=== PATIENT | male | born 1990 | race Caucasian/White ===

== ENCOUNTER 2016-07-05 15:42 | Emergency (ER) | payer OTHER ==
[2016-07-05 16:01] VITALS: BP 119/73
--- NOTE | 2016-07-05 16:58 | UC ---
Ear Complaint HPI - HPI Summary HPI Summary: LEFT EAR PAIN SINCE YESTERDAY. HAS POSITIVE INFLUENZA, DIAGNOSED TODAY. TODAY HAS HAS WORSENIGN FATIGUE COUGH AND ACHES. - History of Current Complaint Chief Complaint: UCRespiratory Stated Complaint: COUGH, EAR PAIN Time Seen by Provider: 07/05/16 16:30 Hx Obtained From: Patient Onset/Duration: Sudden Onset, Lasting Days, Still Present Severity Initially: Moderate Severity Currently: Moderate Associated Signs/Symptoms: Positive: URI Symptoms - Allergies/Home Medications Allergies/Adverse Reactions: Allergies Allergy/AdvReac Type Severity Reaction Status Date / Time Cefaclor [From Ceclor] Allergy Severe Hives Verified 01/08/15 12:43 Cephalexin [From Keflex] Allergy Severe Hives Verified 01/08/15 12:43 Home Medications: Home Medications Naltrexone [Vivitrol] 07/05/16 [History] PMH/Surg Hx/FS Hx/Imm Hx Previously Healthy: Yes Endocrine History Of: Denies: Diabetes, Thyroid Disease Cardiovascular History Of: Denies: Cardiac Disorders, Hypertension Respiratory History Of: Denies: COPD, Asthma GI/ History Of: Reports: Renal Disease - HX KIDNEY CYSTS Denies: Ulcer - Surgical History Surgical History: Yes Surgery Procedure, Year, and Place: tonsillectomy and adenoidectomy; ear tubes - Family History Known Family History: Positive: None, Other - Alcohol abuse, bipolar disorder Negative: Respiratory Disease - Social History Occupation: Employed Full-time Lives: With Family Alcohol Use: None Substance Use Type: Heroin, Marijuana Smoking Status (MU): Light Every Day Tobacco Smoker Amount Used/How Often: 5 cigs daily Household Exposure Type: Cigarettes Review of Systems Constitutional: Fatigue Skin: Negative Eyes: Negative ENT: Ear Ache Respiratory: Cough Cardiovascular: Negative Gastrointestinal: Negative Genitourinary: Negative Motor: Negative Neurovascular: Negative Musculoskeletal: Negative Neurological: Negative Psychological: Negative All Other Systems Reviewed And Are Negative: Yes Physical Exam Triage Information Reviewed: Yes Appearance: Well-Appearing, No Pain Distress, Thin Vital Signs: Initial Vital Signs Temp 98.3 F 07/05/16 15:54 Pulse 75 07/05/16 15:54 Resp 16 07/05/16 15:54 BP 119/73 07/05/16 15:54 Pulse Ox 99 07/05/16 15:54 Vital Signs Reviewed: Yes Eye Exam: Normal ENT: Positive: Hearing grossly normal, Pharynx normal, Nasal congestion, TM dull , Other: - LEFT EAR EAC ERRETHEMA EDEMA Dental Exam: Normal Neck exam: Normal Neck: Positive: Supple, Nontender, No Lymphadenopathy Respiratory Exam: Other - COUGH Respiratory: Positive: Chest non-tender, Lungs clear, Normal breath sounds, No respiratory distress, No accessory muscle use Cardiovascular Exam: Normal Cardiovascular: Positive: RRR, No Murmur, Pulses Normal, Brisk Capillary Refill Abdominal Exam: Normal Abdomen Description: Positive: Nontender, No Organomegaly Musculoskeletal Exam: Normal Neurological Exam: Normal Psychological Exam: Normal Skin Exam: Normal Ear Complaint Course/Dx - Differential Dx/Diagnosis Differential Diagnosis/HQI/PQRI: Otitis Externa, Otitis Media, Perforated TM, URI Provider Diagnoses: INFLUENZA. LEFT OTITIS EXTERNA Discharge - Discharge Plan Condition: Stable Disposition: HOME Prescriptions: Neomyc/Polym/HC 1% OTIC SUSP* [Cortisporin Otic Susp 1%*] 4 drop LEFT EAR QID # 1 btl Oseltamivir CAP* [Tamiflu CAP*] 75 mg PO BID #10 cap Patient Education Materials: Otitis Externa (ED), Influenza (ED) Forms: *Work Release Referrals: Sharath Cartwright MD [Primary Care Provider] -
== END 2016-07-05 17:00 | disposition home or self-care (01) ==
LOC: UCEAST 15:42
DX: J11.1 Influenza due to unidentified influenza virus with other respiratory manifestations (principal); H60.92 Unspecified otitis externa, left ear; Z88.1 Allergy status to other antibiotic agents; F17.210 Nicotine dependence, cigarettes, uncomplicated
CPT/HCPCS: 99212; G0463

== ENCOUNTER 2017-06-06 15:27 | Emergency (ER) | payer SELFPAY ==
[2017-06-06 16:40] VITALS: BP 131/69
--- NOTE | 2017-06-06 20:20 | RAD ---
INDICATION: Right elbow pain after throwing snowballs COMPARISON: None TECHNIQUE: AP and lateral views were obtained. FINDINGS: The bony structures, joint spaces, and soft tissues are normal for age. IMPRESSION: NEGATIVE EXAMINATION.
--- NOTE | 2017-06-06 20:21 | RAD ---
INDICATION: Right forearm pain after throwing snowballs COMPARISON: None TECHNIQUE: AP and lateral views were obtained. FINDINGS: The bony structures, joint spaces, and soft tissues are normal for age. IMPRESSION: NEGATIVE EXAMINATION.
--- NOTE | 2017-06-06 21:11 | UC ---
Elbow Pain - HPI Summary HPI Summary: 26 yo WM c/o right elbow x 2 days after throwing snow for an hour, denies injury or trauma - History of Current Complaint Chief Complaint: UCUpperExtremity Stated Complaint: SHOULDER INJURY Time Seen by Provider: 06/06/17 19:43 Hx Obtained From: Patient Onset/Duration: Hours Severity Currently: Moderate Pain Intensity: 8 - Allergies/Home Medications Allergies/Adverse Reactions: Allergies Allergy/AdvReac Type Severity Reaction Status Date / Time MS Cefaclor [From Ceclor] Allergy Severe Hives Verified 06/06/17 16:40 MS Cephalexin [From Keflex] Allergy Severe Hives Verified 06/06/17 16:40 Home Medications: Home Medications Citalopram Hydrobromide [Citalopram HBr] 20 mg PO DAILY 06/06/17 [History Confirmed 06/06/17] Gabapentin CAP(*) [Neurontin 300 CAP(*)] 300 mg PO BEDTIME 06/06/17 [History Confirmed 06/06/17] Nicotine PATCH 21 MG/24 HR* 21 mg TRANSDERM DAILY 06/06/17 [History Confirmed ] PMH/Surg Hx/FS Hx/Imm Hx - Additional Past Medical History Additional PMH: none - Surgical History Surgical History: Yes Surgery Procedure, Year, and Place: tonsillectomy and adenoidectomy; ear tubes - Family History Known Family History: Positive: None, Other - Alcohol abuse, bipolar disorder Negative: Respiratory Disease - Social History Alcohol Use: None Substance Use Type: Heroin, Marijuana Smoking Status (MU): Light Every Day Tobacco Smoker Amount Used/How Often: 5 cigs daily Household Exposure Type: Cigarettes Review of Systems Constitutional: Negative Skin: Negative Eyes: Negative ENT: Negative Respiratory: Negative Cardiovascular: Negative Gastrointestinal: Negative Genitourinary: Negative Motor: Negative Neurovascular: Negative Musculoskeletal: Decreased ROM, Other: - left elbow pain radiating up right biceps and triceps Neurological: Negative Psychological: Negative All Other Systems Reviewed And Are Negative: Yes Physical Exam Triage Information Reviewed: Yes Appearance: Well-Appearing Vital Signs: Initial Vital Signs Temp 37.6 C 06/06/17 16:35 Pulse 82 06/06/17 16:35 Resp 16 06/06/17 16:35 BP 131/69 06/06/17 16:35 Pulse Ox 98 06/06/17 16:35 Eye Exam: Normal ENT Exam: Normal Dental Exam: Normal Neck exam: Normal Neck: Positive: 1 Respiratory Exam: Normal Cardiovascular Exam: Normal Abdominal Exam: Normal Musculoskeletal Exam: Normal Musculoskeletal: Positive: ROM Limited @ - right elbow due to pain, Other: - moderate TTP along lower half of right biceps and triceps NVI no numbness and tingling NO bony tenderness Neurological Exam: Normal Psychological Exam: Normal Skin Exam: Normal Elbow Pain Course/Dx - Course Course Of Treatment: XR of right elbow and forearm neg for fx, likely a strain from sudden demand on musculature from repetitive motion, RICE, f/u with ortho if pain persists beyond 2-3 weeks and maybe an MRI - Differential Dx/Diagnosis Provider Diagnoses: Right arm strain. Elbow injury Discharge - Discharge Plan Condition: Stable Disposition: HOME Patient Education Materials: Elbow Sprain (ED) Referrals: Sharath Cartwright MD [Primary Care Provider] - Additional Instructions: as tolerated
== END 2017-06-06 21:05 | disposition home or self-care (01) ==
LOC: UCEAST 15:27
DX: S59.901A Unspecified injury of right elbow, initial encounter (principal); X50.0XXA Overexertion from strenuous movement or load, initial encounter; X50.3XXA Overexertion from repetitive movements, initial encounter; Y93.29 Activity, other involving ice and snow; Y92.9 Unspecified place or not applicable; F17.210 Nicotine dependence, cigarettes, uncomplicated; S53.401A Unspecified sprain of right elbow, initial encounter
CPT/HCPCS: 99212; G0463

== ENCOUNTER 2017-06-29 07:24 | Emergency (ER) | payer OTHER ==
[2017-06-29] MEDS ORDERED: Tetan/Diph/Pertus SYR(Tdap)* 0.5 ML SYR(BOOSTRIX) use SYR IM ONE (07:32)
[2017-06-29] MEDS ORDERED: Morphine INJ* 4 MG/ML 1 ML CARPUJECT IV ONE (07:33)
[2017-06-29] MEDS ORDERED: NS 0.9% 1000 ML* 1,000 ML IV ONE (07:38)
[2017-06-29] MEDS ORDERED: Morphine INJ* 2 MG/ML 1 ML SYRINGE (TWO MG - NEW SYRINGE VERSION) ONE (07:43)
[2017-06-29] MEDS ORDERED: Morphine VIAL* 10 MG/ML 1 ML VIAL ONE (07:46)
[2017-06-29] MEDS ORDERED: Morphine VIAL* 10 MG/ML 1 ML VIAL IV ONE (07:51)
[2017-06-29] MEDS: Morphine VIAL* 10 MG/ML 1 ML VIAL IV ONE ×2 (08:24→09:54)
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
[2017-06-29 11:09] VITALS: BP 119/78
== END 2017-06-29 09:55 | disposition short-term general hospital (02) ==
LOC: UCEAST 07:24
DX: T23.242A Burn of second degree of multiple left fingers (nail), including thumb, initial encounter (principal); T23.211A Burn of second degree of right thumb (nail), initial encounter; X02.0XXA Exposure to flames in controlled fire in building or structure, initial encounter; Y93.G3 Activity, cooking and baking; Y92.9 Unspecified place or not applicable; Z23 Encounter for immunization; R03.0 Elevated blood-pressure reading, without diagnosis of hypertension; Z86.19 Personal history of other infectious and parasitic diseases; Z88.1 Allergy status to other antibiotic agents; F17.210 Nicotine dependence, cigarettes, uncomplicated
CPT/HCPCS: 90715; 96361; 96374; 96376; 99203; G0463; J2270

== ENCOUNTER 2017-10-16 16:23 | Emergency (ER) | payer MEDICAID, OTHER ==
[2017-10-16 16:33] VITALS: BP 127/86
[2017-10-16] MEDS ORDERED: diPHENhydraMINE PO* 25 MG PO ONE (16:44)
--- NOTE | 2017-10-18 11:13 | ED ---
Krista Mcrae Tenzin, scribed for Francis Dasilva MD on 10/16/17 at 1650 . Allergic Reaction/Systemic - HPI Summary HPI Summary: Pt is a 26 years old male presenting to the ED complaining of allergic reaction after a bee stung this afternoon. Pt notes that his hands were red, swollen and tight like "latex glove on his hand". Pt reports that he went to wash his hands with cold water to help the swellings and noticed that his face was swollen as well. Pt denies SOB and tightness in his throat. No aggravating or alleviating factors were noted. Pt also reports that he took a shot of Meth this morning on his arm. He reports that he is trying to get in a rehab program. He reports he is off the Suboxone treatment. He denies SI. - History of Current Complaint Chief Complaint: EDGeneral Time Seen by Provider: 10/16/17 16:26 Hx Obtained From: Patient Onset/Duration: Started hours ago - this afternoon. Pain Intensity: 0 Character: Swelling - hands and face. Aggravating Factor(s): Nothing Alleviating Factor(s): Nothing Associated Signs And Symptoms: Negative: Difficulty Breathing, Throat Tightening - Allergies/Home Medications Allergies/Adverse Reactions: Allergies Allergy/AdvReac Type Severity Reaction Status Date / Time cefaclor Allergy Hives Verified 06/29/17 08:08 cephalexin Allergy Hives Verified 06/29/17 08:08 PMH/Surg Hx/FS Hx/Imm Hx Endocrine/Hematology History: Denies: Hx Diabetes, Hx Thyroid Disease Cardiovascular History: Denies: Hx Hypertension Respiratory History: Denies: Hx Asthma, Hx Chronic Obstructive Pulmonary Disease (COPD) GI History: Denies: Hx Ulcer History: Reports: Hx Renal Disease - HX KIDNEY CYSTS - Surgical History Surgery Procedure, Year, and Place: tonsillectomy and adenoidectomy; ear tubes Infectious Disease History: No Infectious Disease History: Reports: Hx Hepatitis - hep c Denies: Hx Clostridium Difficile, Hx Human Immunodeficiency Virus (HIV), Hx of Known/Suspected MRSA, Hx Shingles, Hx Tuberculosis, Hx Known/Suspected VRE, Hx Known/Suspected VRSA, History Other Infectious Disease, Traveled Outside the [place] in Last 30 Days - Family History Known Family History: Positive: None, Other - Alcohol abuse, bipolar disorder Negative: Respiratory Disease - Social History Alcohol Use: Occasionally Hx Substance Use: Yes Substance Use Type: Reports: Heroin, Marijuana, Other Substance Use Comment - Amount & Last Used: Meth Hx Tobacco Use: Yes Smoking Status (MU): Light Every Day Tobacco Smoker Type: Cigarettes Amount Used/How Often: 5 cigs daily Review of Systems Positive: Other - NEGATIVE: throat tightening. Negative: Shortness Of Breath Positive: Other - NEGATIVE: SI All Other Systems Reviewed And Are Negative: Yes Physical Exam - Summary Physical Exam Summary: Constitutional: Well-developed, Well-nourished, Alert. (-) Distressed Skin: Warm, Dry HENT: Normocephalic; Atraumatic Eyes: Conjunctiva normal Neck: Musculoskeletal ROM normal neck. (-) JVD, (-) Stridor, (-) Tracheal deviation Cardio: Rhythm regular, rate normal, Heart sounds normal; Intact distal pulses; The pedal pulses are 2+ and symmetric. Radial pulses are 2+ and symmetric. (-) Murmur Pulmonary/Chest wall: Effort normal. (-) Respiratory distress, (-) Wheezes, (-) Rales Abd: Soft, (-) Tenderness, (-) Distension, (-) Guarding, (-) Rebound Musculoskeletal: (-) Edema Lymph: (-) Cervical adenopathy Neuro: Alert, Oriented x3 Psych: Mood and affect Normal Triage Information Reviewed: Yes Vital Signs On Initial Exam: Initial Vitals Temp Pulse Resp BP Pulse Ox 98 F 81 16 127/86 99 10/16/17 16:30 10/16/17 16:30 10/16/17 16:30 10/16/17 16:30 10/16/17 16:30 Vital Signs Reviewed: Yes Diagnostics - Vital Signs Vital Signs Temp Pulse Resp BP Pulse Ox 10/16/17 16:30 98 F 81 16 127/86 99 - Laboratory Lab Statement: Any lab studies that have been ordered have been reviewed, and results considered in the medical decision making process. Allergic Reaction Course/Dx - Course Course Of Treatment: Pt is a 26 years old male presenting to the ED complaining of allergic reaction after a bee stung this afternoon. Pt reported that he took a shot of meth today. Pt is advised to seek help for addiction. Pt is prescribed with Benadryl and discharged. There were no signs or symptoms of anaphylaxis. - Diagnoses Provider Diagnoses: Bee sting reaction, Localized rash Discharge - Sign-Out/Discharge Documenting (check all that apply): Discharge/Admit/Transfer - Discharge - Discharge Plan Condition: Stable Disposition: HOME Prescriptions: diPHENhydraMINE PO* [Benadryl PO 50 MG CAP*] 50 mg PO Q6H PRN #20 cap PRN Reason: Itching Patient Education Materials: Insect Bite or Sting (ED) Referrals: Sharath Cartwright MD [Primary Care Provider] - 3 Days Additional Instructions: Follow up with your primary care physician in three days. Return to the emergency department for any new or worsening symptoms. - Billing Disposition and Condition Condition: STABLE Disposition: Home The documentation as recorded by the Krista dorantes Tenzin accurately reflects the service I personally performed and the decisions made by , Francis Dasilva MD.
== END 2017-10-16 17:08 | disposition home or self-care (01) ==
LOC: ED 16:23
DX: T63.441A Toxic effect of venom of bees, accidental (unintentional), initial encounter (principal); Y92.9 Unspecified place or not applicable; R21 Rash and other nonspecific skin eruption
CPT/HCPCS: 99282

== ENCOUNTER 2018-03-19 19:40 | Emergency (ER) | payer MEDICAID ==
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
[2018-03-19] MEDS ORDERED: Ondansetron ODT TAB* 4 MG ONE (20:39)
[2018-03-19] MEDS ORDERED: Ondansetron ODT TAB* 4 MG SL ONE (20:40)
[2018-03-19 21:05] VITALS: BP 142/91
== END 2018-03-19 21:03 | disposition home or self-care (01) ==
LOC: ED 19:40
DX: T40.1X1A Poisoning by heroin, accidental (unintentional), initial encounter (principal); Y92.512 Supermarket, store or market as the place of occurrence of the external cause; Z88.1 Allergy status to other antibiotic agents; F17.210 Nicotine dependence, cigarettes, uncomplicated
CPT/HCPCS: 99283; A9270-GY

== ENCOUNTER 2018-06-03 01:25 | Emergency (ER) | payer MEDICAID, OTHER ==
--- NOTE | 2018-06-03 02:10 | ED ---
Substance Abuse/Use - HPI Summary HPI Summary: Patient is a 27 y/o M presenting to ED via ambulance with law enforcement after injecting himself with heroin and meth. Officer Maryana is present in ED, states that patient had barricaded himself in a room and then proceeded to carry out drug injection. He notes that he arrived after the fact and had been told patient's story. Injection occurred about an hour ago. Officer is unsure if patient experienced LOC. It is reported that the patient began to have complaints of chest pain while in the ambulance, patient was given nitro x2. Chest pain has since resolved. In room, patient notes that he uses fairly frequently, injects at arms. He states that he used only once today. He is alert and oriented x3. Patient was ambulated around ED with a steady gait. In room, pulse 95, o2 99, BP 123/63. On triage, pain is denied, nothing is noted to aggravate/alleviate Sx. Home medications and allergies are reviewed. - History Of Current Complaint Chief Complaint: EDSubstanceAbuse Stated Complaint: CHEST PAIN Time Seen by Provider: 06/03/18 01:50 Hx Obtained From: Patient Onset/Duration of Drug/ETOH Abuse: Hours - around an hour ago Ingestion History: Type/Name Of Drug - heroin, meth Overdose Characteristics: IV Timing Of Abuse: Daily - "fairly regularly" Severity Currently: None - pain denied Aggravating Factor(s): Nothing Alleviating Factor(s): Nothing Associated Signs And Symptoms: Chest Pain - since resolved - Allergies/Home Medications Allergies/Adverse Reactions: Allergies Allergy/AdvReac Type Severity Reaction Status Date / Time cefaclor Allergy Hives Verified 06/29/17 08:08 cephalexin Allergy Hives Verified 06/29/17 08:08 PMH/Surg Hx/FS Hx/Imm Hx Endocrine/Hematology History: Denies: Hx Diabetes, Hx Thyroid Disease Cardiovascular History: Denies: Hx Hypertension Respiratory History: Denies: Hx Asthma, Hx Chronic Obstructive Pulmonary Disease (COPD) GI History: Denies: Hx Ulcer History: Reports: Hx Renal Disease - HX KIDNEY CYSTS - Surgical History Surgery Procedure, Year, and Place: tonsillectomy and adenoidectomy; ear tubes Infectious Disease History: Unable to Obtain/Confirm Infectious Disease History: Reports: Hx Hepatitis - hep c Denies: Hx Clostridium Difficile, Hx Human Immunodeficiency Virus (HIV), Hx of Known/Suspected MRSA, Hx Shingles, Hx Tuberculosis, Hx Known/Suspected VRE, Hx Known/Suspected VRSA, History Other Infectious Disease, Traveled Outside the [place] in Last 30 Days - Family History Known Family History: Positive: Other - Alcohol abuse, bipolar disorder Negative: Respiratory Disease - Social History Alcohol Use: Occasionally Hx Substance Use: Yes Substance Use Type: Reports: Heroin, Marijuana, Other Substance Use Comment - Amount & Last Used: Meth Hx Tobacco Use: Yes Smoking Status (MU): Light Every Day Tobacco Smoker Type: Cigarettes Amount Used/How Often: 5 cigs daily Review of Systems Constitutional: Other - POSITIVE - HEROIN AND METH USAGE Positive: Chest Pain - SINCE RESOLVED All Other Systems Reviewed And Are Negative: Yes Physical Exam - Summary Physical Exam Summary: VITAL SIGNS: Reviewed. GENERAL: Patient is a well-developed and nourished male who is lying comfortable in the stretcher. Patient is not in any acute respiratory distress. HEAD AND FACE: No signs of trauma. No ecchymosis, hematomas or skull depressions. No sinus tenderness. EYES: PERRLA, EOMI x 2, No injected conjunctiva, no nystagmus. EARS: Hearing grossly intact. Ear canals and tympanic membranes are within normal limits. MOUTH: Oropharynx within normal limits. NECK: Supple, trachea is midline, no adenopathy, no JVD, no carotid bruit, no c- spine tenderness, neck with full ROM. CHEST: Symmetric, no tenderness at palpation LUNGS: Clear to auscultation bilaterally. No wheezing or crackles. CVS: Regular rate and rhythm, S1 and S2 present, no murmurs or gallops appreciated. ABDOMEN: Soft, non-tender. No signs of distention. No rebound no guarding, and no masses palpated. Bowel sounds are normal. EXTREMITIES: FROM in all major joints, no edema, no cyanosis or clubbing. NEURO: Alert and oriented x 3. No acute neurological deficits. Speech is normal and follows commands. SKIN: Dry and warm Triage Information Reviewed: Yes Vital Signs On Initial Exam: Initial Vitals BP 120/60 06/03/18 01:31 Vital Signs Reviewed: Yes Diagnostics - Vital Signs Vital Signs Temp Pulse Resp BP Pulse Ox 06/03/18 01:44 80 119/64 98 06/03/18 01:36 97.8 F 80 14 120/60 98 06/03/18 01:33 162 100 06/03/18 01:31 120/60 - Laboratory Lab Statement: Any lab studies that have been ordered have been reviewed, and results considered in the medical decision making process. Course/Dx - Course Course Of Treatment: Patient is a 27 y/o M presenting to ED via ambulance with law enforcement after injecting himself with heroin and meth. Officer Maryana is present in ED, states that patient had barricaded himself in a room and then proceeded to carry out drug injection. He notes that he arrived after the fact and had been told patient's story. Injection occurred about an hour ago. Officer is unsure if patient experienced LOC. It is reported that the patient began to have complaints of chest pain while in the ambulance, patient was given nitro x2. Chest pain has since resolved. In room, patient notes that he uses fairly frequently, injects at arms. He states that he used only once today. He is alert and oriented x3. Patient was ambulated around ED with a steady gait. In room, pulse 95, o2 99, BP 123/63. As the patient is capable of ambulating around the ED with steady gait, he will be discharged to law enforcement. - Diagnoses Provider Diagnoses: Substance abuse Discharge - Sign-Out/Discharge Documenting (check all that apply): Patient Departure - discharge Patient Received Moderate/Deep Sedation with Procedure: No - NO PROCEDURES DONE - Discharge Plan Condition: Stable Disposition: LAW ENFORCEMENT/COURT Patient Education Materials: Polysubstance Abuse (ED) Referrals: Sharath Cartwright MD [Primary Care Provider] - 2 Days Additional Instructions: RETURN TO EMERGENCY DEPARTMENT FOR ANY NEW OR WORSENING SYMPTOMS. FOLLOW UP WITH PRIMARY CARE PHYSICIAN IN 1-2 DAYS. - Attestation Statements Document Initiated by Scribe: Yes Documenting Scribe: SAURAV SPENCE Provider For Whom Scribe is Documenting (Include Credential): EJ LOPEZ MD Scribe Attestation: SAURAV Mcrae , scribed for EJ LOPEZ MD on 06/03/18 at 0504. Status of Scribe Document: Ready
[2018-06-03 02:19] VITALS: BP 123/63
== END 2018-06-03 02:23 ==
LOC: ED 01:25
DX: F19.10 Other psychoactive substance abuse, uncomplicated (principal); R07.9 Chest pain, unspecified; F17.210 Nicotine dependence, cigarettes, uncomplicated
CPT/HCPCS: 99282

== ENCOUNTER 2018-06-14 08:03 | Emergency (ER) | payer OTHER ==
--- NOTE | 2018-06-14 08:22 | ED ---
Substance Abuse/Use - HPI Summary HPI Summary: This patient is a 27 year old M brought in by ambulance to [facility] from a homeless fpc in the [facility] due to a heroin overdose this morning. EMS states they got the call around 0720. EMS reports patient was noted to be nodding off at the breakfast table and was minimally responsive. The facility administered 0.4mg x3 nasal Narcan with positive response. Patient awoke. EMS states patient was drowsy, non-combative but non-cooperative , with vomiting during the transport to the hospital. Pupils dilated and sluggish for EMS. Patient reports using IV heroin last night. Patient reports taking suboxone through [facility]. PMHx includes hepatitis C. - History Of Current Complaint Chief Complaint: EDOverdose Stated Complaint: OVERDOSE Hx Obtained From: Patient, EMS Onset/Duration of Drug/ETOH Abuse: Hours Ingestion History: Type/Name Of Drug - heroin Overdose Characteristics: IV Timing Of Abuse: Intermittent Severity Initially: Severe Severity Currently: Moderate Character: Lethargic Aggravating Factor(s): Nothing Alleviating Factor(s): Nothing Associated Signs And Symptoms: Vomiting, Altered Mental Status - Allergies/Home Medications Allergies/Adverse Reactions: Allergies Allergy/AdvReac Type Severity Reaction Status Date / Time cefaclor Allergy Hives Verified 06/29/17 08:08 cephalexin Allergy Hives Verified 06/29/17 08:08 PMH/Surg Hx/FS Hx/Imm Hx Previously Healthy: Yes Endocrine/Hematology History: Denies: Hx Diabetes, Hx Thyroid Disease Cardiovascular History: Denies: Hx Hypertension Respiratory History: Denies: Hx Asthma, Hx Chronic Obstructive Pulmonary Disease (COPD) GI History: Denies: Hx Ulcer History: Reports: Hx Renal Disease - HX KIDNEY CYSTS Psychiatric History: Reports: Hx Substance Abuse - Surgical History Surgery Procedure, Year, and Place: tonsillectomy and adenoidectomy; ear tubes Infectious Disease History: Yes Infectious Disease History: Reports: Hx Hepatitis - Hepatitis C Denies: Hx Clostridium Difficile, Hx Human Immunodeficiency Virus (HIV), Hx of Known/Suspected MRSA, Hx Shingles, Hx Tuberculosis, Hx Known/Suspected VRE, Hx Known/Suspected VRSA, History Other Infectious Disease, Traveled Outside the in Last 30 Days - Family History Known Family History: Positive: Other - Alcohol abuse, bipolar disorder Negative: Cardiac Disease, Respiratory Disease - Social History Alcohol Use: Occasionally Hx Substance Use: Yes Substance Use Type: Reports: Heroin, Marijuana, Other Substance Use Comment - Amount & Last Used: Meth Hx Tobacco Use: Yes Smoking Status (MU): Light Every Day Tobacco Smoker Type: Cigarettes Amount Used/How Often: 5 cigs daily Review of Systems Positive: Other - drowsiness Cardiovascular: Negative Respiratory: Negative Positive: Vomiting Genitourinary: Negative Musculoskeletal: Negative Positive: Other - track estuardo left forearm, states he uses the same injection site all the time Neurological: Other - minimally responsive earlier today Positive: Other - drowsy All Other Systems Reviewed And Are Negative: Yes Physical Exam - Summary Physical Exam Summary: Appearance: Ill-appearing ,no pain distress, well-nourished Skin: Warm, color reflects adequate perfusion, dry, track estuardo left forearm with bruising; no abscess Head: Normal Head/Face inspection, atraumatic Eyes: Conjunctiva clear, EOMI, pupils 4mm minimally reactive ENT: Normal inspection Neck: Supple, no nodes, no JVD Respiratory: Lungs clear, normal breath sounds, no respiratory distress Cardio: tachycardic, No murmur, pulses normal, brisk capillary refill Abdomen: Soft, nontender Bowel sounds: Present Musculoskeletal: Strength Intact/ROM intact, no calf tenderness, no edema. Psychological: cooperative, drowsy Neuro: Alert, muscle tone normal, no focal deficit, GCS 15 Triage Information Reviewed: Yes Vital Signs On Initial Exam: Initial Vitals Temp Pulse Resp BP Pulse Ox 98.0 F 92 16 130/74 100 06/14/18 08:05 06/14/18 08:05 06/14/18 08:05 06/14/18 08:05 06/14/18 08:05 Vital Signs Reviewed: Yes - Cassie Coma Scale Best Eye Response: 4 - Spontaneous Best Motor Response: 6 - Obeys Commands Best Verbal Response: 5 - Oriented Coma Scale Total: 15 Diagnostics - Vital Signs Vital Signs Temp Pulse Resp BP Pulse Ox 06/14/18 08:15 16 06/14/18 08:05 98.0 F 92 16 130/74 100 - Laboratory Result Diagrams: 06/14/18 09:38 06/14/18 09:38 Lab Statement: Any lab studies that have been ordered have been reviewed, and results considered in the medical decision making process. - EKG 0807 Cardiac Rate: NL - 79 BPM EKG Rhythm: Sinus Rhythm ST Segment: Non-Specific Ectopy: None EKG Comparison: No Significant Change - 01/31/11 Summary of EKG Findings: nml AV/IV CT, nml QTc, and nml axis. No acute changes. Re-Evaluation - Re-Evaluation First Re-Evaluation Time: 11:00 Change: Unchanged - Patient is still drowsy but has not become more drowsy. Does not need additional Narcan. Second Re-Evaluation Time: 11:30 Change: Improved - Patient is more alert now and is able to walk around the room and to the bathroom unassisted. Course/Dx - Course Course Of Treatment: 27 year old M brought in by ambulance to [facility] from a homeless fpc in the [facility] due to a heroin overdose this morning. EMS reports patient was nodding off at the breakfast table and was minimally responsive. The facility administered 0.4mg x3 nasal Narcan. EMS states patient was drowsy, non-combative, and non-cooperative with vomiting during the transport to the hospital. Pupils dilated and sluggish for EMS. Patient reports using IV heroin last night. Patient reports taking suboxone through [facility]. PMHx includes hepatitis C. EKG reveals NSR at 79 BPM, nml AV/IV CT, nml QTc, and nml axis. No acute changes. Bloodwork reveals Hgb 13.5, Hct 40 , BUN/Creatinine ratio 26. Toxicology indicates opiates and cocaine. At 11:00 patient's drowsiness remains the same. Around 11:30 patient becomes more alert and is walking around the room. Patient is discharged and instructed to stop using heroin and cocaine and to follow up with [facility]. Medications, allergies, and nurses notes reviewed. - Diagnoses Differential Diagnosis/HQI/PQRI: Positive: Alcohol Abuse, Depression, Drug Abuse , Metabolic Disorder Provider Diagnoses: Polysubstance abuse, Overdose - Critical Care Time Critical Care Time: 30-74 min Discharge - Sign-Out/Discharge Documenting (check all that apply): Patient Departure - discharge back to [facility]pc Patient Received Moderate/Deep Sedation with Procedure: No - Discharge Plan Condition: Stable Disposition: HOME Patient Education Materials: Polysubstance Abuse (ED) Referrals: Sharath Cartwright MD [Primary Care Provider] - 2 Days Additional Instructions: You needed narcan to waken you from a heroin overdose. You need to stop using this. Have definite follow up with [facility]. You were also positive for cocaine. You need to stop using this also. Return to the ER if you have any new or worsening symptoms. - Billing Disposition and Condition Condition: STABLE Disposition: Home - Attestation Statements Document Initiated by Reji: Yes Documenting Scribe: Augusta Wilcox Provider For Whom Reji is Documenting (Include Credential): Lisa Krause MD Scribe Attestation: IAugusta, scribed for Lisa Krause MD on 06/15/18 at [id number]. Scribe Documentation Reviewed: Yes Provider Attestation: The documentation as recorded by the Augusta dorantes accurately reflects the service I personally performed and the decisions made by , Lisa Krause MD Status of Scrjuanito Document: Viewed
[2018-06-14 09:46] LABS: ABS Basophils 0 10^3/ul (0-0.2); ABS Eosinophils 0.1 10^3/ul (0-0.6); ABS Lymphocytes 1.2 10^3/ul (1.0-4.8); ABS Monocytes 0.7 10^3/ul (0-0.8); ABS Neutrophils 6.9 10^3/ul (1.5-7.7); ABS Nucleated RBC 0 10^3/ul; Eosinophil % 1.1 %; Hematocrit 40 % (42-52); Hemoglobin 13.5 g/dl (14.0-18.0); Lymphocyte % 13.3 %; Mean Corpuscular HGB Conc 34 g/dl (31-36); Mean Corpuscular Hemoglobin 29 pg (27-31); Mean Corpuscular Volume 87 fL (80-94); Mean Platelet Volume 7.5 fL (7.4-10.4); Nucleated Red Blood Cells % 0.1; Platelet Count 213 10^3/ul (150-450); Red Cell Distribution Width 13 % (10.5-15); White Blood Count 8.9 10^3/ul (3.5-10.8)
[2018-06-14 10:01] LABS: INR 0.9 (0.77-1.02)
[2018-06-14 10:08] LABS: Albumin 4.1 g/dL (3.2-5.2); Albumin/Globulin Ratio 1.4 (1-3); C Reactive Protein 2.81 mg/L (<8.01); Calcium 9.6 mg/dL (8.6-10.3); EGFR African American 146.6 (>60); EGFR Non-African American 121.2 (>60); Globulin 2.9 g/dL (2-4); Potassium 3.8 mmol/L (3.5-5.0); Total Bilirubin 0.4 mg/dL (0.2-1.0)
[2018-06-14 10:35] LABS: Barbiturates Urine Screen None Detected (None Detect); Benzodiazepine Urine Screen None Detected (None Detect); Urine Cannabinoids Screen None Detected (None Detect)
[2018-06-14 11:32] LABS: Urine Appearance Cloudy; Urine Bilirubin Negative (Negative); Urine Blood Negative (Negative); Urine Color Yellow; Urine Glucose Negative (Negative); Urine Ketones Negative (Negative); Urine Nitrite Negative (Negative); Urine Protein Negative (Negative); Urine Specific Gravity 1.011 (1.010-1.030); Urine Urobilinogen Negative (Negative)
[2018-06-14 11:35] VITALS: BP 135/77
== END 2018-06-14 11:33 | disposition home or self-care (01) ==
LOC: ED 08:03
DX: T40.1X1A Poisoning by heroin, accidental (unintentional), initial encounter (principal); R40.0 Somnolence; R11.10 Vomiting, unspecified; I49.8 Other specified cardiac arrhythmias; Y92.89 Other specified places as the place of occurrence of the external cause; Z88.1 Allergy status to other antibiotic agents; F17.210 Nicotine dependence, cigarettes, uncomplicated
CPT/HCPCS: 36415; 80053; 80307; 81003; 83605; 83735; 85025; 85610; 86140; 93005; 99282